=== PATIENT | female | born 2000 | race Caucasian/White ===

== ENCOUNTER 2023-01-07 13:29 | Emergency (ER) | payer OTHER, MEDICAID, SELFPAY ==
[2023-01-07 13:31] VITALS: BP 141/96; PULSE 82; RESP 18; TEMP 36.6; O2SAT 100; BMI 30.8
--- NOTE | 2023-01-07 13:49 | ED.VIS.FEGU ---
HPI HPI - Female History of Present Illness Chief Complaint: Vag Bld, Preg Informant: patient Pain Pain: Positive for Pelvic Pain Onset: Today Quality: Positive for Cramping Current Severity: Mild Maximum Severity: Mild Bleeding Issue: Positive for Vaginal bleeding Onset: Yesterday Timing: Intermittent Current Severity: Mild Maximum Severity: Mild Associated Symptoms Last known menstrual period: 10/18/2022 Test: Positive, Urine and Home Sexually: Positive for Active and Single Partner P: 1 Narrative Narrative: Patient is approximately 11 weeks by dates and positive home test. Has been calling trying to get into an OB locally but not able to get an appointment with anyone. She has been taking [id number] prenatals. Yesterday she started having bleeding this morning she started having some cramping and felt like it was in the left side mostly, occasionally on the right, but not severe pain. A little lightheadedness lately she has been drinking fluids and that seems to have helped. No syncope. No vomiting but she has had some nausea off and on. No urinary symptoms. No back pain. PFSH PFSH Medical History no medical history no medical history Allergy/AdvReac Type Severity Reaction Status Date / Time No Known Allergies Allergy Verified 01/07/23 13:33 Social History Smoking Status: Former smoker ROS ROS ED Constitutional Constitutional ED: Denies chills or fever(s) Eyes Eyes: Denies change in vision or diplopia ENT ENT ED: Denies rhinorrhea or sore throat Cardiovascular Cardiovascular: Reports lightheadedness; Denies chest pain, palpitations or syncope Respiratory/Chest Respiratory/Chest: Denies cough or dyspnea Gastrointestinal Gastrointestinal: Reports abdominal pain and nausea; Denies diarrhea or vomiting Genitourinary Genitourinary ED: Reports vaginal bleeding; Denies dysuria or hematuria Musculoskeletal Musculoskeletal: Denies back pain or neck pain Integumentary Denies abscess or rash Neurologic Neurologic: Denies headache(s), paresthesias or weakness Psychiatric Psychiatric: Denies anxiety or suicidal thoughts EXAM Physical Exam Const Vital Signs: 01/07/23 13:31 Temperature 97.8 F Temperature Source Temporal Pulse Rate 82 Respiratory Rate 18 Blood Pressure 141/96 H Blood Pressure Mean 111 Pulse Ox 100 Oxygen Delivery Method Room Air Positive well nourished and well developed General Appearance ED: well developed and NAD HEENT Reports moist mucous membranes normocephalic and atraumatic Eyes PERRL and EOMs intact bilaterally Neck full ROM and supple Resp normal respiratory effort and clear to auscultation bilaterally Cardio regular rate, regular rhythm and no murmurs Rate: Negative for tachycardic GI non-tender and non-distended Auscultation: normoactive bowel sounds Palpation: soft Speculum Exam - Vagina: vaginal bleeding Back/Spine no CVA tenderness General Back: other FROM Extremity normal to inspection General Extremety ED: Negative for edema, pulses abnormal or tenderness General Extremity: Negative for edema or pulses abnormal Neuro oriented x3, CN's II-XII intact bilaterally and no sensory deficits noted Sensorium / Orientation: awake and alert Motor Exam: strength 5/5 throughout Skin no rashes or lesions noted and no wounds MDM MDM MDM Narrative Medical decision making narrative: Labs were sent and a bedside ultrasound was performed by myself. I do not see clear evidence of an intrauterine or heartbeat. For this reason quantitative hCG is ordered and she is sent to ultrasound for an official transvaginal pelvic ultrasound in order to rule out or evaluate for ectopic . Also ordered ABO Rh since we have no record of her blood type in the past, to screen for need for RhoGAM. This showed that her blood type is A positive, so no indication for RhoGAM. Her quantitative hCG is 11,785. Ultrasound does not appear to show a pole or heartbeat. Gestational sac is only consistent with 6-week 2-day approximately. Reviewing the images, there appears to be a yolk sac in some of the uterine images, but yolk sac and pole not seen, consistent with nonviable . Discussed with Dr. Huang on for unassigned, she agrees to have the patient follow-up soon as possible after the weekend for reevaluation in the office, no 48-hour repeat hCG necessary at this time. Lab Data Attestation: I reviewed the patient's lab results. Labs: Laboratory Results - last 24 hr 01/07/23 13:42 HCG, Quant [id number] H Blood Type A POSITIVE Radiography Diagnostic Testing: Clinical Impression(s) from Imaging Studies Obstetrics Ultrasound 01/07/23 14:03 IMPRESSION: 1. The mean sac diameter (MSD) measures 1.50 cm, indicating an estimated gestational age (EGA) of 6 weeks, 2 days. The gestational sac shape is abnormally shaped and somewhat elongated and lobular, and containing small amounts of debris within the gestational sac. Appearance suggests nonviable Electronically Signed: Antolin Crews MD at 15:41 EST , I reviewed ultrasound images and the report and I agree with it. Discharge Plan Triage Chief Complaint: Vag Bld, Preg ED Provider: Klaus Cole Dx/Rx/DC Orders Clinical Impression: Threatened miscarriage Instructions: ED Possible Miscarriage ... Primary Care Provider: Care Physician,No Primary Referrals: Hansa Huang MD [Med Staff - Active Staff] - As soon as possible (call for appt to follow up on Tuesday or Tuesday) Disposition Disposition: Home, Self Care
--- NOTE | 2023-01-07 14:03 | US_ITS ---
STUDY: FIRST TRIMESTER OBSTETRICAL ULTRASOUND REASON FOR EXAM: Female, 22 years old pain L pelvis bleeding LMP: Unknown. TECHNIQUE: Transabdominal and Transvaginal TECHNICAL QUALITY: Adequate. PRIOR ULTRASOUND: None. FINDINGS: There is visualization of a single gestational sac in a normal intrauterine position. The mean sac diameter (MSD) measures 1.50 cm, indicating an estimated gestational age (EGA) of 6 weeks, 2 days. The gestational sac shape is abnormally shaped and somewhat elongated and lobular, and containing small amounts of debris within the gestational sac. There is no demonstrated yolk sac. The placenta is non-visualized. There is no demonstrated embryo ( pole). The uterus measures 9.2 x 7.5 x 5.7 cm. There is no demonstrated uterine fibroid. The cervix is closed. The right ovary measures 3.3 x 2.7 x 2.4 cm. There is no right ovarian cyst. There is no visualized right adnexal mass or complex lesion. The left ovary measures 3.1 x 1.8 x 2.1 cm. There is no left ovarian cyst. There is no visualized left adnexal mass or complex lesion. There is no fluid in the cul de sac. US/Transvaginal w/Preg US IMPRESSION: 1. The mean sac diameter (MSD) measures 1.50 cm, indicating an estimated gestational age (EGA) of 6 weeks, 2 days. The gestational sac shape is abnormally shaped and somewhat elongated and lobular, and containing small amounts of debris within the gestational sac. Appearance suggests nonviable Electronically Signed: Antolin Crews MD at 15:41 EST ,
[2023-01-07 14:52] LABS: hCG Titer Quant., Serum 11785 mIU/mL (1-3)
== END 2023-01-07 16:07 | disposition home or self-care (01) ==
PROVIDERS: Emergency Provider Emergency Medicine; Visit Provider Emergency Medicine
DX: O20.0 Threatened abortion (principal); Z3A.11 11 weeks gestation of pregnancy; Z87.891 Personal history of nicotine dependence
CPT/HCPCS: 76817; 84702; 86900; 86901; 99283; A4216

== ENCOUNTER → 2023-01-10 | Outpatient (CLI) | payer OTHER, MEDICAID, SELFPAY ==
[2023-01-10 11:44] LABS: hCG Titer Quant., Serum 4583 mIU/mL (1-3)
== END | disposition home or self-care (01) ==
LOC: LAB 10:27
PROVIDERS: Visit Provider Obstetrics & Gynecology
DX: O03.9 Complete or unspecified spontaneous abortion without complication (principal)
CPT/HCPCS: 36415; 84702

== ENCOUNTER → 2023-01-18 | Outpatient (CLI) | payer OTHER, MEDICAID, SELFPAY ==
[2023-01-18 18:13] LABS: hCG Titer Quant., Serum 103 mIU/mL (1-3)
== END | disposition home or self-care (01) ==
LOC: LAB 16:16
PROVIDERS: Referring Provider Obstetrics & Gynecology; Visit Provider Obstetrics & Gynecology
DX: O03.9 Complete or unspecified spontaneous abortion without complication (principal)
CPT/HCPCS: 36415; 84702

== ENCOUNTER → 2023-01-25 | Outpatient (CLI) | payer OTHER, MEDICAID, SELFPAY ==
[2023-01-25 18:42] LABS: hCG Titer Quant., Serum 14 mIU/mL (1-3)
== END | disposition home or self-care (01) ==
LOC: LAB 16:59
PROVIDERS: Referring Provider Obstetrics & Gynecology; Visit Provider Obstetrics & Gynecology
DX: O03.9 Complete or unspecified spontaneous abortion without complication (principal)
CPT/HCPCS: 36415; 84702

== ENCOUNTER → 2023-01-31 | Outpatient (CLI) | payer OTHER, MEDICAID, SELFPAY ==
[2023-01-31 15:09] LABS: hCG Titer Quant., Serum 4 mIU/mL (1-3)
== END | disposition home or self-care (01) ==
PROVIDERS: Referring Provider Obstetrics & Gynecology; Visit Provider Obstetrics & Gynecology
DX: O03.9 Complete or unspecified spontaneous abortion without complication (principal)
CPT/HCPCS: 36415; 84702

== ENCOUNTER → 2023-04-14 | Outpatient (CLI) | payer OTHER, MEDICAID, SELFPAY ==
[2023-04-14 12:39] LABS: hCG Titer Quant., Serum 74402 mIU/mL (1-3)
--- OUTSIDE RECORDS SUMMARY | 2023-04-14 18:23 | XMS RPT_ITS | CCD ---
Author Name Unknown Address [address] [place] [address] Organization [facility] Care Team Providers Care Partnership Marketing Manager Name Role Phone Kalyani Amaya Unavailable Unavailable Unavailable NO PRIMARY CARE, Primary Care Unavailable Medications Completed/Discontinued Medications Medication Drug Class(es) Dates Sig (Normalized) Sig (Original) amoxicillin 875 mg / clavulanate 125 mg oral tablet (2 sources) Penicillin-class Antibacterial Start: 09-29-2018 take 1 tablet by mouth twice daily Amoxicillin-Pot Clavulanate 875-125 MG Oral Tablet 1 tab bid Quantity: 20 Refills: 0 Ordered: 29-Sep-2018 Kalyani Amaya MD Start : 29-Sep-2018 Active ondansetron 4 mg oral tablet (4 sources) Serotonin-3 Receptor Antagonist Start: 04-17-2021 Ondansetron HCl - 4 MG Oral Tablet 1 tab q 8 prn nausea Quantity: 12 Refills: 0 Ordered: 17-Apr-2021 Kalyani Amaya MD Start : 17-Apr-2021 Active Problems Active Problems Problem Classification Problem Date Documented Date Episodic/Chronic Acute and chronic tonsillitis (2 sources) Tonsillitis; Translations: [Acute tonsillitis] Episodic Disorders of lipid metabolism (2 sources) Hypertriglyceridemia ; Translations: [Pure hyperglyceridemia] Chronic Gastritis and duodenitis (2 sources) Viral gastritis; Translations: [Unspecified gastritis and gastroduodenitis, without mention of hemorrhage] Episodic Menstrual disorders (2 sources) Disorder of menstruation; Translations: [Excessive or frequent menstruation] Chronic Nausea and vomiting (2 sources) Nausea and vomiting; Translations: [Nausea with vomiting] Episodic Other nutritional; endocrine; and metabolic disorders (2 sources) Childhood obesity; Translations: [Body Mass Index, pediatric, greater than or equal to 95th percentile for age] Chronic Other nutritional; endocrine; and metabolic disorders (2 sources) Insulin resistance; Translations: [Dysmetabolic syndrome X] Chronic Other and delivery including normal (2 sources) ; Translations: [ state, incidental] Episodic Other screening for suspected conditions (not mental disorders or infectious disease) (2 sources) Thyroid function tests abnormal; Translations: [Other abnormal blood chemistry] Episodic Other upper respiratory infections (4 sources) Streptococcal sore throat; Translations: [Streptococcal sore throat] Resolved: 05-25-2015 Episodic Past or Other Problems Problem Classification Problem Date Documented Da te Episodic/Chronic Other and unspecified benign neoplasm (2 sources) Benign neoplasm of soft tissue; Translations: [Benign neoplasm of skin, site unspecified] Resolved: 09-23-2016 Episodic Residual codes; unclassified (2 sources) H/O: respiratory disease; Translations: [Personal history of other diseases of respiratory system] Resolved: 07-11-2015 Episodic Unclassified (2 sources) Allergic rhinitis, unspecified allergic rhinitis type; Translations: [Allergic rhinitis, unspecified allergic rhinitis type] Results Test Name Value Interpretation Reference Range Facil ity Vital Signs Date Time Vital Sign Value Performing Clinician Faci lity 04-17-2021 13:59-0500 Body temperature 97.9 [degF] Kalyani Amaya Work Phone: [facility] Work Phone: 04-17-2021 13:59-0500 Body weight 88 kg Kalyani Amaya Work Phone: [facility] Work Phone: 04-17-2021 13:59-0500 Diastolic blood pressure 82 mm[Hg] Kalyani Amaya Work Phone: [facility] Work Phone: 04-17-2021 13:59-0500 Systolic blood pressure 122 mm[Hg] Kalyani Amaya Work Phone: [facility] Work Phone: Encounters Encounter Date Encounter Type Care Provider Facility Start: 08-10-2022 End: 08-10-2022 ambulatory MD [facility] Start: 04-18-2021 Chart Update Kalyani maya Work Phone: [facility] Work Phone: Start: 04-17-2021 Office outpatient vi sit 15 minutes MirlandeAnanya Amaya Work Phone: [facility] Work Phone: Immunizations Immunization Date Immunization Notes Care Provider Fa cility 11-27-2017 measles, mumps and rubella virus vaccine MirlandeAnanya Amaya Work Phone: [facility] Work Phone: 11-17-2017 influenza, injectabl e, quadrivalent, contains preservative MirlandeAnanya Amaya Work Phone: [facility] Work Phone: 09-15-2017 tetanus toxoid, redu edgar diphtheria toxoid, and acellular pertussis vaccine, adsorbed Kalyani Amaya Work Phone: [facility] Work Phone: 11-26-2016 Human Papillomavirus 9-valent vaccine; Translations: [Gardasil 9 Intramuscular Suspension] Kalyani Amaya Work Phone: [facility] Work Phone: Payers Date Payer Category Payer Unknown [id number] Unknown Unknown [id number] Social History Date Type Detail Facility Pets/Animals: Cat Pets/Animals: Cat [facility] Work Phone: History of Present illness Narrative 04-03-2021 Note Date & Type Note Facility 04-03-2021 History of Present illness Narrative EP. Here for constant vomiting after eating or drinking for 2 weeks.Niles is a 20 year old female presenting for vomiting after eating or drinking.- She reports that for the last 2 weeks she has been vomiting after eating or drinking anything.- no fever or chills or body aches- no problems swallowing.- She states that there is no chance of as she has not had intercourse in 2 years.- She denies depression and anxiety- no h/o eating disorder- has not been having many BM.- tries to drink water as much as she can.- has a 3 year old son and lives with mother- periods are normal. [facility] Work Phone: Summary Purpose Family History No Family History Records FoundUnknown Family Member Name Dates Details FHx: allergies: Mother(V19.6 , Z84.89) Status:Active Family history of diabetes m ellitus: Mother(V18.0, Z83.3) Status:Active Family history of thyroid di sease: Aunt(V18.19, Z83.49) Status:Active Family history of asthma: Mo ther, Sibling(V17.5, Z82.5) Status:Active Hay fever: Mother Status:Active Family history of arthritis: Mother, Grandparent(V17.7, Z82.61) Status:Active Family history of cardiac di sorder: Grandparent(V17.49, Z82.49) Status:Active Family history of myocardial infarction: Grandparent(V17.3, Z82.49) Status:Active Family history of hypertensi on: Grandparent(V17.49, Z82.49) Status:Active Borderline high cholesterol: Grandparent Status:Active Family history of substance abuse: Sibling(V17.0, Z81.4) Status:Active Unknown Family Member Name Dates Details FHx: allergies: Mother(V19.6 , Z84.89) Status:Active Family history of diabetes m ellitus: Mother(V18.0, Z83.3) Status:Active Family history of thyroid di sease: Aunt(V18.19, Z83.49) Status:Active Family history of asthma: Mo ther, Sibling(V17.5, Z82.5) Status:Active Hay fever: Mother Status:Active Family history of arthritis: Mother, Grandparent(V17.7, Z82.61) Status:Active Family history of cardiac di sorder: Grandparent(V17.49, Z82.49) Status:Active Family history of myocardial infarction: Grandparent(V17.3, Z82.49) Status:Active Family history of hypertensi on: Grandparent(V17.49, Z82.49) Status:Active Borderline high cholesterol: Grandparent Status:Active Family history of substance abuse: Sibling(V17.0, Z81.4) Status:Active Advance Directives No Advanced Directives Records FoundNo Advanced Directives Records FoundNo Advanced Directives Records FoundNo Advanced Directives Records FoundNo Advanced Directives Records FoundNo Advanced Directives Records FoundNo Advanced Directives Records Found Hospital Course Note HNO ID: [id number] Author: Jorge De La Paz Service: Hospital Medicine Author Type: Physician Type: Discharge Summary Filed: 12/19/2018 4:50 PM Note Text: DISCHARGE SUMMARY PATIENT NAME: Niles Neri ADMISSION DATE: 12/17/2018 DISCHARGE DATE: 12/19/2018 Attending Physician: Josue De La Paz Reason for Hospitalization: syncope Active Problems: Syncope Intractable headache Resolved Problems: * No resolved hospital problems. * Operations During Hospitalization: None Procedures During Hospitalization: EEG, MRI brain, MRV, MRA head and neck Hospital Course: Patient is a 18-year-old female with no significant past medical history product to the ER after she had an episode of syncope. She had 2 episodes of syncope at home. Both of them were preceded by severe throbbing headache bilaterally. She was seen recently at [facility] for fever and underwent lumbar puncture with no evidence of any COIL BUILDER infection. Patient is seen by neurology. She had workup with EEG, MRI of the (more content not included)... Note HNO ID: [id number] Author: Bigg Singh Service: Hospital Medicine Author Type: Physician Type: Discharge Summary Filed: 12/15/2018 8:07 AM Note Text: DISCHARGE SUMMARY PATIENT NAME: Niles Neri Code Status: full code Highest Readmission Risk Score: 8 The 30 day readmissions risk score is derived from an internally validated risk model which evaluates patient level characteristics, utilization history, medication orders and lab results up until the day of discharge. Patients with a score of 40 or above are considered highest risk for readmission. Specific patient level drivers will be listed at the bottom of the summary. Admission Information Admission Information ADMIT DATE: 12/14/2018 DISCHARGE DATE: 12/15/18 MY DOCTORS AND MEDICAL TEAM: My Main Hospital Doctor: Obed Singh Primary Care Provider: Mery Jimenez MD My Medical Team Members: Treatment Team: Attending Provider: Obed Singh Consulting: Linus Billings MD MY CONDITION AT DISCHARGE: S (more content not included)... Additional Source Comments INFORMATION SOURCE (unrecogn ized section and content) DATE CREATED AUTHOR AUTHOR'S ORGANIZ ATION 12/19/2018 [facility] DATE CREATED AUTHOR AUTHOR'S ORGANIZ ATION 12/22/2018 [facility] DATE CREATED AUTHOR AUTHOR'S ORGANIZ ATION 10/06/2019 [facility] DATE CREATED AUTHOR AUTHOR'S ORGANIZ ATION 04/19/2021 [facility] DATE CREATED AUTHOR AUTHOR'S ORGANIZ ATION 04/20/[address] [facility] DATE CREATED AUTHOR AUTHOR'S ORGANIZ ATION 08/11/2022 [facility] FOR RECORDS PERTAINING TO PATIENTS WHO ARE OR HAVE BEEN ENROLLED IN A CHEMICAL DEPENDENCY/SUBSTANCEABUSE PROGRAM, SOME INFORMATION MAY BE OMITTED. This clinical summary was aggregated from multiple sources. Caution should be exercised in using it in the provision of clinical care. This summary normalizes information from multiple sources, and as a consequence, information in this document may materially change the coding, format and clinical context of patient data. In addition, data may be omitted in some cases. CLINICAL DECISIONS SHOULD BE BASED ON THE PRIMARY CLINICAL RECORDS. [facility] [employer] provides no warranty or guarantee of the accuracy or completeness of information in this document.
== END | disposition home or self-care (01) ==
LOC: LAB 11:20
PROVIDERS: Referring Provider Obstetrics & Gynecology; Visit Provider Obstetrics & Gynecology
DX: N91.2 Amenorrhea, unspecified (principal)
CPT/HCPCS: 36415; 84702

== ENCOUNTER → 2023-04-20 | Outpatient (CLI) | payer OTHER, MEDICAID, SELFPAY ==
--- NOTE | 2023-04-20 13:51 | US_ITS ---
INDICATION: dating EXAMINATION: Ultrasound US OB Less Than 14 Weeks TECHNIQUE: Transabdominal pelvic ultrasound was performed. Grayscale, spectral waveform, and color flow Doppler evaluation of the adnexa. COMPARISON: Prior study dated: 01/07/2023 LMP: [Unknown Beta-hCG: Unknown FINDINGS: UTERUS: The uterus measures about 14 x 9.3 x 9 cm. RIGHT OVARY: The right ovary measures 3.3 x 2.6 x 2 cm. Normal. LEFT OVARY: The left ovary measures 3.7 x 3 x 2.7 cm. Normal. FREE FLUID: None. INTRAUTERINE GESTATIONAL SAC(s) (size/shape): Single intrauterine gestational sac . YOLK SAC: Not identified POLE: Identified CRL 5.3 cm. ESTIMATED GESTATION AGE: 11 weeks and 6 days. HEART MOTION: 162 bpm. PLACENTA: Not visualized due to age. SUBCHORIONIC HEMORRHAGE: None. AMNIOTIC FLUID: Qualitatively normal. US/Init OB < 14Wks US IMPRESSION: Single live intrauterine . Estimated gestational age is 11 weeks and 6 days. LASHA is 11/03/2023. Electronically Signed: Lewis Franco MD at 10:36 EST ,
== END | disposition home or self-care (01) ==
LOC: OPUS 13:50
PROVIDERS: Referring Provider Obstetrics & Gynecology; Visit Provider Obstetrics & Gynecology
DX: Z34.91 Encounter for supervision of normal pregnancy, unspecified, first trimester (principal); Z3A.11 11 weeks gestation of pregnancy
CPT/HCPCS: 76801

== ENCOUNTER → 2023-04-28 | Outpatient (CLI) | payer OTHER, MEDICAID, SELFPAY ==
[2023-04-28 16:18] LABS: Absolute Lymphocyte Count 2.01 X10^3/uL (0.83-4.51); Absolute Neutrophil Count 5.5 X10^3/uL (2.0-7.7); Basophil# 0.02 X10^3/uL; Basophil% 0.2 % (0-1); Eosinophils% 1.2 % (0-5); Lymphocyte # 2.01 X10^3/ul (0.83-4.51); Lymphocyte % 24.8 % (19-41); Mean Corp Hgb Conc 34.3 g/dL (32-36); Mean Corpuscular Hgb 30.4 pg (27.0-32.0); Mean Corpuscular Volume 88.6 fL (81-99); Mean Platelet Vol. 9.9 fl (6.2-12.0); Monocyte% 4.9 % (0-10); NRBC Flagged by Analyzer 0 % (0-5); Neutrophil # 5.53 X10^3/uL (2.7-7.7); Neutrophil % 68.4 % (47-70); Platelet Count 284 K/mm3 (150-450); RBC Distribution Width CV 12.6 % (11.6-14.6); Red Blood Count 3.95 M/mm3 (4.2-5.4); White Blood Count 8.1 K/mm3 (4.4-11.0)
[2023-04-28 17:03] LABS: Hemoglobin A1c 4.9 % (3.8-5.6)
[2023-04-28 17:41] LABS: HIV - WCH Non-Reactive (Nonreactive); Hepatitis B Surface Antigen Non-Reactive (Nonreactive); Hepatitis C Antibody Non-Reactive (Nonreactive); Rubella IgG Reactive (Nonreactive); Syphilis Antibodies Non-reactive
[2023-05-02 21:07] LABS: Chlamydia By Nucleic Acid AMP Positive (Negative); Gonococcus By Nucleic Acid AMP Negative (Negative)
[2023-05-04 15:57] LABS: HPV Reflexed? NOT INDICATED
== END | disposition home or self-care (01) ==
PROVIDERS: Referring Provider Advanced Practice Midwife; Visit Provider Advanced Practice Midwife
DX: Z34.82 Encounter for supervision of other normal pregnancy, second trimester (principal)
CPT/HCPCS: 36415; 83036; 85025; 86703; 86762; 86780; 86803; 86850; 86900; 86901; 87086; 87088; 87340; 87491; 87591; 88175; G0145

== ENCOUNTER → 2023-06-01 | Outpatient (CLI) | payer SELFPAY | END | disposition home or self-care (01) | LOC: LABSPEC 16:49 | PROVIDERS: Referring Provider Obstetrics & Gynecology; Visit Provider Obstetrics & Gynecology | DX: O98.819 Other maternal infectious and parasitic diseases complicating pregnancy, unspecified trimester (principal); A74.9 Chlamydial infection, unspecified; Z3A.00 Weeks of gestation of pregnancy not specified | CPT/HCPCS: 87491; 87591 ==

== ENCOUNTER 2023-06-25 10:24 | Emergency (ER) | payer OTHER, MEDICAID, SELFPAY ==
[2023-06-25 10:25] VITALS: BP 137/83; PULSE 91; RESP 18; TEMP 36.4; O2SAT 100; BMI 31.4
--- NOTE | 2023-06-25 10:45 | ED.VIS.FEGU ---
HPI HPI - Female History of Present Illness Chief Complaint: Vag Bld, Preg Narrative Narrative: 22-year-old female, G3, P1 at approximately 21 weeks gestation presents with near syncope. She relates history that on Tuesday, approximately 7 days ago, she started having pelvic cramping. The following day, she experienced spotting/vaginal bleeding. This alternates between a slightly heavier flow returns to spotting. Currently, she denies any brisk vaginal bleeding but is still having occasional cramping. She states she follows with Dr. Broderick at [facility], but did not contact them as of yet. She was concerned because today she felt very lightheaded and near syncopal, but states she caught herself before she actually passed out. She denies any fevers or chills, no other symptoms. PFSH [facility] Medical History Complete Hx of chlamydia infection Home Medications PNV 153-FA 400 mcg-om3 35 mg-dha 25 mg-epa 5 mg-fish oil chew tablet tab PO 04/28/23 [History Last Taken Unknown] Allergy/AdvReac Type Severity Reaction Status Date / Time No Known Allergies Allergy Verified 06/25/23 10:25 Family History Aunt Breast cancer Paternal Aunt Breast cancer Maternal Mother Asthma demise 20weeks Sister Asthma Brother Asthma Social History adopted: No household members: family and children number of children: 1 current occupational status: employed current occupation: [employer] current occupational exposures/hazards: No pets and animals: Yes pets and animals: cat(s) and dog(s) history of recent travel: No sexually active: Yes Smoking Status: Former smoker Tobacco: How many years used: 7 how long ago did patient quit smoking: once she found out she was alcohol intake: never substance use type: does not use well-balanced diet: about half the time caffeine: Yes Type: coffee Number of servings: 2 eating out: 1-3 times/week during the past year weight has: increased > 10 lbs what type of physical activity do you participate in: none jenna/uatsdin: None seatbelt use: always do you feel safe at home: Yes additional social history: Boyfriend-Patel BERNSTEIN ROS ED ROS Narrative Constitutional: No fever, no chills. HEENT: No sore throat. No neck pain. No loss of vision. No rhinorrhea. Cardiovascular: No chest pain. No palpitations. No pedal edema. Respiratory: No cough, no shortness of breath. Abdominal: No abdominal pain. No nausea. No vomiting. Genitourinary: No dysuria. No hematuria. Positive vaginal bleeding/spotting. Positive pelvic cramping. Started 7 days ago. Musculoskeletal: No myalgias. No arthralgias. Neurologic: No headaches. No dizziness. Positive lightheadedness and near syncope today. Skin: No rash. No change in color. Psychiatric: No depression. No anxiety. EXAM Physical Exam Narrative Exam Narrative: Afebrile. Vital signs noted. HEENT: Normocephalic. Atraumatic. PERRL, EOMI. Neck soft and supple. No point tenderness or step off. Cardiovascular: Regular rate and rhythm. No murmurs, rubs, or gallops appreciated. Respiratory: No tachypnea. Lungs clear to auscultation bilaterally. Gastrointestinal: Abdomen soft, nontender, with normoactive bowel sounds. No rebound or guarding. Neurological: Awake. Alert. Oriented. Nonfocal, nonlateralizing. Skin: No rash. Normal color. No pallor. Musculoskeletal: No pedal edema. Full range of motion extremities. Const Vital Signs: 06/25/23 10:25 Temperature 97.6 F L Temperature Source Temporal Pulse Rate 91 Respiratory Rate 18 Blood Pressure 137/83 H Blood Pressure Mean 101 Pulse Ox 100 Oxygen Delivery Method Room Air MDM MDM MDM Narrative Medical decision making narrative: In the differential diagnosis would be anemia from vaginal bleeding causing near syncope. Also the differential would be vasovagal near syncope secondary to anxiety. Patient states that she does not have a menstrual period between her last which was miscarried, and her that is current. heart tones will be obtained. As she is 21 weeks I will defer sterile speculum examination. I will check basic laboratory work including CBC and CMP, but I do feel that after this medical clearance that she would be able to be discharged to labor and delivery for further evaluation as she is over 20 weeks gestation. heart rate was obtained by RN and his time to the 154 bpm. I reviewed her CBC which has returned and she is slightly anemic at 10.9, I do not feel she needs a transfusion, platelet count is normal at 228, WBC count 8.3. Her CMP is pending, but I do feel that she has been medically cleared for further evaluation in labor and delivery where ultrasound transabdominally can be performed as needed, as well as sterile speculum examination. Disposition is discharged to labor and delivery. Patient is in stable condition. History & Record Review Discussion w/independent historian: Patient Lab Data Labs: Laboratory Results - last 24 hr 06/25/23 10:50 WBC 8.3 RBC 3.64 L Hgb 10.9 L Hct 32.7 L MCV 89.8 MCH 29.9 MCHC 33.3 RDW Std Deviation 42.3 RDW Coeff of Bartolo 12.9 Plt Count 228 MPV 10.0 Immature Gran % (Auto) 0.500 Neut % (Auto) 75.8 H Lymph % (Auto) 17.8 L Russell % (Auto) 4.6 Eos % (Auto) 1.1 Baso % (Auto) 0.2 Absolute Neuts (auto) 6.3 Absolute Lymphs (auto) 1.47 Nucleated RBC % 0 Discharge Plan Triage Chief Complaint: Vag Bld, Preg ED Provider: Gallo Baldwin Dx/Rx/DC Orders Clinical Impression: Vaginal bleeding during , Near syncope, Instructions: Vaginal Bleeding During , ED Near-Fainting, Uncertain Cause Prescriptions: No Action PNV [id number] 400 mcg-35 mg- 25 mg-5 mg tablet,chewable PO Primary Care Provider: Care Physician,No Primary Referrals: Care Physician,No Primary [Primary Care Provider] - Activity Restrictions/Additional Instructions: Report immediately to labor and delivery for further evaluation. Disposition Disposition: Home, Self Care
[2023-06-25 11:11] LABS: Absolute Lymphocyte Count 1.47 X10^3/uL (0.83-4.51); Absolute Neutrophil Count 6.3 X10^3/uL (2.0-7.7); Basophil# 0.02 X10^3/uL; Basophil% 0.2 % (0-1); Eosinophil# 0.09 X10^3/uL; Eosinophils% 1.1 % (0-5); Hematocrit 32.7 % (37-47); Hemoglobin 10.9 g/dL (12.0-15.0); Lymphocyte # 1.47 X10^3/ul (0.83-4.51); Lymphocyte % 17.8 % (19-41); Mean Corp Hgb Conc 33.3 g/dL (32-36); Mean Corpuscular Hgb 29.9 pg (27.0-32.0); Mean Corpuscular Volume 89.8 fL (81-99); Monocyte# 0.38 X10^3/uL; Monocyte% 4.6 % (0-10); NRBC Flagged by Analyzer 0 % (0-5); Neutrophil # 6.25 X10^3/uL (2.7-7.7); Neutrophil % 75.8 % (47-70); Platelet Count 228 K/mm3 (150-450); RBC Distribution Width CV 12.9 % (11.6-14.6); RBC Distribution Width SD 42.3 fl (35.1-43.9); Red Blood Count 3.64 M/mm3 (4.2-5.4); White Blood Count 8.3 K/mm3 (4.4-11.0)
[2023-06-25 11:20] LABS: ALB/GLOB Ratio 0.8 RATIO (0.9-2.4); AST(SGOT) 12 U/L (15-37); Alanine Aminotransfer ALT/SGPT 16 U/L (13-56); Alkaline Phosphatase 39 U/L (45-117); Anion Gap 5 (5-15); BUN 6 mg/dL (7-18); BUN/Creat Ratio 10.7 RATIO (10-20); Chloride 108 mmol/L (98-107); Creatinine, Serum 0.56 mg/dL (0.55-1.02); EST Glomerular Filtration Rate 140 mL/min (>60); Est Glom Filt Rate - Afr Amer 170 mL/min (>60); Globulin 3.8 g/dL (2.2-4.2); Glucose 91 mg/dL (74-106); Potassium 3.3 mmol/L (3.5-5.1); Protein, Total 6.8 g/dL (6.4-8.2); Sodium Level 138 mmol/L (136-145)
== END 2023-06-25 11:21 | disposition home or self-care (01) ==
PROVIDERS: Emergency Provider Emergency Medicine; Visit Provider Emergency Medicine
DX: O46.92 Antepartum hemorrhage, unspecified, second trimester (principal); Z3A.21 21 weeks gestation of pregnancy; R55 Syncope and collapse; Z87.891 Personal history of nicotine dependence; O99.012 Anemia complicating pregnancy, second trimester; O99.891 Other specified diseases and conditions complicating pregnancy; D64.9 Anemia, unspecified
CPT/HCPCS: 80053; 85025; 99283; A4216

== ENCOUNTER 2023-06-25 11:20 | Outpatient (CLI) | payer OTHER, MEDICAID, SELFPAY ==
--- NOTE | 2023-06-25 11:26 | US_ITS ---
STUDY: SECOND AND THIRD TRIMESTER OBSTETRICAL ULTRASOUND - LIMITED REASON FOR EXAM: Female, 22 years old bleeding and decrease movement LMP: Unknown. PRIOR ULTRASOUND: 04/20/2023 TECHNIQUE: Transabdominal TECHNICAL QUALITY: Adequate. FINDINGS: There is a single intrauterine fetus. The fetus is in a breech presentation. There is demonstrated cardiac activity with a heart rate of 141 bpm. There is a subjectively normal amniotic fluid volume. The largest amniotic fluid pocket measures 3.9 cm. . The placenta is anterior and fundal, not low lying There are Grade 1 placental changes. The cervix measures 4.0 cm in length. Cotton Classer notes multiple venous lakes within the placenta largest measures 2.6 x 2.9 x 1.7 cm. Detailed anatomy survey not performed, estimated gestational age is 21 weeks 2 days. US/OB Limited (No Biometrics) IMPRESSION: Single live intrauterine with heart rate at 21 weeks, 2 days with heart rate at at 141 bpm. Presentation on the study is breech. Cotton Classer notes multiple venous lakes within the placenta. Electronically Signed: Jozef Tipton MD at 13:36 EDT ,
[2023-06-25 11:54] VITALS: PULSE 77; RESP 16; TEMP 37.2; O2SAT 99
[2023-06-25 11:55] VITALS: BP 93/51; PULSE 76
[2023-06-25 11:56] VITALS: BMI 32.1
[2023-06-25 11:57] LABS: Mucous, Urine 0 SEEN /hpf (<or=2+); Squamous Epithelial Cells - UA 0 SEEN /hpf (5-10)
[2023-06-25 12:06] LABS: Color, Urine Straw (Yellow); Glucose, Dipstick Normal (Normal); Ketone-Dipstick Negative (Negative); Leukocyte Esterase-Dipstick 500 /ul (Negative); Nitrite-Dipstick Negative (Negative); Occult Blood-Urine 10 /ul (Negative); Protein-Dipstick Negative (Negative); Specific Gravity, Urine 1.005 (1.002-1.030); Urine Bilirubin Dipstick Negative (Negative); Urine Clarity Clear (Clear); Urine Urobilinogen Normal (Normal)
[2023-06-25 12:13] LABS: Bacteria RARE /hpf (None Seen); Red Blood Cells-Urine 0-5 SEEN /hpf (0-5); Transitional Epithelial - Ur 5-10 SEEN /hpf (0-5); White Blood Cells 10-25 SEEN /hpf (0-5)
[2023-06-25] MEDS: 0.9% Saline Lock 10 ML Syringe IV ×2 (13:21→13:22)
[2023-06-25] MEDS: Lactated Ringers 1,000 ML 999 ML IV (13:21)
--- NOTE | 2023-06-25 13:56 | OB.TRI.PN_ITS ---
Progress Notes Date of Service: 06/25/23 Progress Note: Patient presents for triage evaluation secondary to cramping and occasional vaginal spotting FHT: 140 appropriate for gestational age [place]: no Contractions Assessment and plan: US reassuring, No rhogam indicated, Urine indicates possible UTI-home with ATB, reassuring maternal and status patient discharged to home to follow-up in office. See problem list details for additional plan information. Laboratory Studies: Laboratory Tests 06/25/23 Range/Units 11:41 Urine Color Straw (Yellow) Urine Clarity Clear (Clear) Urine pH 7.0 (5.0 - 8.0) Ur Specific [place] 1.005 (1.002-1.030) Urine Protein Negative (Negative) mg/dl Urine Glucose (UA) Normal (Normal) mg/dl Urine Ketones Negative (Negative) mg/dl Urine Occult Blood 10 H (Negative) /ul Urine Nitrite Negative (Negative) Urine Bilirubin Negative (Negative) mg/dL Urine Urobilinogen Normal (Normal) mg/dl Ur Leukocyte Esterase 500 H (Negative) /ul Urine RBC 0-5 SEEN (0-5) /hpf Urine WBC 10-25 SEEN (0-5) /hpf Ur Squamous Epith Cells 0 SEEN (5-10) /hpf Ur Transition Epith Cell 5-10 SEEN (0-5) /hpf Urine Bacteria RARE (None Seen) /hpf Urine Mucus 0 SEEN (<or=2+) /hpf Blood Type A POSITIVE Antibody Screen NEGATIVE Charges/Coding Procedures Urinary/Genital 52xxx-59xxx: [id number] non-stress test Interp Assessment & Plan (1) Urinary tract infection: PLAN: macrobid (2) Near syncope: (3) Vaginal bleeding during : (4) Chlamydia infection affecting : COMMENT: KYRA at 17 wks-missed at appt. NEEDS NEXT APPT (5) Obesity affecting : COMMENT: A1C NOB (6) Asthma: COMMENT: mild (7) Supervision of high-risk : COMMENT: PRR, , LASHA 11/03/23, JOHNATHON Noriega (8) : QUALIFIERS: Weeks of gestation: 17 weeks Qualified Code(s): Z3A.17 - 17 weeks gestation of COMMENT: NL anatomy, NIPT low risk, discussed genetic & carrier testing (9) History of miscarriage, currently :
[2023-06-25 14:14] VITALS: BP 109/67; PULSE 71
[2023-06-29 04:07] LABS: Chlamydia By Nucleic Acid AMP Negative (Negative); Gonococcus By Nucleic Acid AMP Negative (Negative)
== END 2023-06-25 14:30 | disposition home or self-care (01) ==
LOC: OBT 11:25 → WP 11:25
PROVIDERS: Visit Provider Advanced Practice Midwife
DX: O23.42 Unspecified infection of urinary tract in pregnancy, second trimester (principal); Z3A.17 17 weeks gestation of pregnancy; O20.9 Hemorrhage in early pregnancy, unspecified; O99.212 Obesity complicating pregnancy, second trimester; O99.512 Diseases of the respiratory system complicating pregnancy, second trimester; J45.909 Unspecified asthma, uncomplicated; O09.292 Supervision of pregnancy with other poor reproductive or obstetric history, second trimester
CPT/HCPCS: 96374; 96361; 36415; 76815; 81001; 86850; 86900; 86901; 87491; 87591; 99221; J7120; A4216; G0378

== ENCOUNTER → 2023-07-28 | Outpatient (CLI) | payer OTHER, MEDICAID, SELFPAY | END | disposition home or self-care (01) | LOC: LABSPEC 15:00 | PROVIDERS: Referring Provider Advanced Practice Midwife; Visit Provider Advanced Practice Midwife | DX: N30.01 Acute cystitis with hematuria (principal) | CPT/HCPCS: 87086; 87088 ==

== ENCOUNTER → 2023-08-10 | Outpatient (CLI) | payer OTHER, MEDICAID, SELFPAY ==
[2023-08-10 14:28] LABS: Absolute Lymphocyte Count 1.59 X10^3/uL (0.83-4.51); Absolute Neutrophil Count 6.2 X10^3/uL (2.0-7.7); Basophil# 0.01 X10^3/uL; Basophil% 0.1 % (0-1); Eosinophil# 0.11 X10^3/uL; Eosinophils% 1.3 % (0-5); Hematocrit 33.7 % (37-47); Hemoglobin 11.2 g/dL (12.0-15.0); Lymphocyte # 1.59 X10^3/ul (0.83-4.51); Lymphocyte % 18.9 % (19-41); Mean Corp Hgb Conc 33.2 g/dL (32-36); Mean Corpuscular Hgb 30.1 pg (27.0-32.0); Mean Corpuscular Volume 90.6 fL (81-99); Mean Platelet Vol. 10.1 fl (6.2-12.0); Monocyte# 0.48 X10^3/uL; Monocyte% 5.7 % (0-10); NRBC Flagged by Analyzer 0 % (0-5); Neutrophil # 6.18 X10^3/uL (2.7-7.7); Neutrophil % 73.5 % (47-70); Platelet Count 251 K/mm3 (150-450); RBC Distribution Width CV 13.2 % (11.6-14.6); RBC Distribution Width SD 43.5 fl (35.1-43.9); Red Blood Count 3.72 M/mm3 (4.2-5.4); White Blood Count 8.4 K/mm3 (4.4-11.0)
[2023-08-10 15:01] LABS: Glucose Challenge Gest 1H 50g 97 mg/dL (70-140)
[2023-08-10 15:36] LABS: HIV - WCH Non-Reactive (Nonreactive); Syphilis Antibodies Non-reactive
== END | disposition home or self-care (01) ==
LOC: LAB 13:06
PROVIDERS: Referring Provider Advanced Practice Midwife; Visit Provider Advanced Practice Midwife
DX: Z34.93 Encounter for supervision of normal pregnancy, unspecified, third trimester (principal); Z3A.26 26 weeks gestation of pregnancy; Z13.1 Encounter for screening for diabetes mellitus
CPT/HCPCS: 36415; 82950; 85025; 86703; 86780

== ENCOUNTER → 2023-10-06 | Outpatient (CLI) | payer OTHER, MEDICAID, SELFPAY | END | disposition home or self-care (01) | LOC: LABSPEC 16:52 | PROVIDERS: Referring Provider Obstetrics & Gynecology; Visit Provider Obstetrics & Gynecology | DX: O98.811 Other maternal infectious and parasitic diseases complicating pregnancy, first trimester (principal); A74.9 Chlamydial infection, unspecified; O09.93 Supervision of high risk pregnancy, unspecified, third trimester; Z3A.00 Weeks of gestation of pregnancy not specified | CPT/HCPCS: 87081; 87491; 87591 ==

== ENCOUNTER 2023-11-07 14:48 | Inpatient (IN) | payer OTHER, MEDICAID, SELFPAY ==
[2023-11-07] VITALS (67 sets, daily range): BP systolic 93–160; BP diastolic 53–83; PULSE 79–169; RESP 16–20; TEMP 36.7–37.2; O2SAT 93–100; BMI 36.3
[2023-11-07] MEDS: Lactated Ringers 1,000 ML 999 ML IV (15:00)
[2023-11-07 15:22] LABS: Absolute Lymphocyte Count 2.39 X10^3/uL (0.83-4.51); Absolute Neutrophil Count 9.4 X10^3/uL (2.0-7.7); Basophil# 0.02 X10^3/uL; Basophil% 0.2 % (0-1); Eosinophil# 0.07 X10^3/uL; Eosinophils% 0.5 % (0-5); Hematocrit 35.7 % (37-47); Hemoglobin 11.9 g/dL (12.0-15.0); Lymphocyte # 2.39 X10^3/ul (0.83-4.51); Lymphocyte % 18.7 % (19-41); Mean Corp Hgb Conc 33.3 g/dL (32-36); Mean Corpuscular Hgb 29.6 pg (27.0-32.0); Mean Corpuscular Volume 88.8 fL (81-99); Monocyte# 0.83 X10^3/uL; Monocyte% 6.5 % (0-10); NRBC Flagged by Analyzer 0 % (0-5); Neutrophil # 9.37 X10^3/uL (2.7-7.7); Neutrophil % 73.3 % (47-70); Platelet Count 246 K/mm3 (150-450); RBC Distribution Width CV 13.7 % (11.6-14.6); RBC Distribution Width SD 44.5 fl (35.1-43.9); Red Blood Count 4.02 M/mm3 (4.2-5.4); White Blood Count 12.8 K/mm3 (4.4-11.0)
--- NOTE | 2023-11-07 15:51 | HP.PCM.OB_ITS ---
HPI - General General Date of Admission: 11/07/23 Date of Service: 11/07/23 HPI Narrative NILES OJYCE, is a 22 F 40.4 weeks gestation who presents to unit in active labor. Maternal Data Information LASHA Calculator Estimated Delivery Date Method Current WG Current Estimate 11/03/23 Ultrasound #1 40w 4d Final LASHA: 11/03/23 Final LASHA Source: US >20 weeks Gestational age: 40.4 PFSH PFSH Medical History Hx of chlamydia infection Complete Home Medications ?Medication ?Instructions ?Recorded ?Last Taken ?Type PNV 153-FA 400 mcg-om3 35 mg-dha 1 tab PO DAILY 04/28/23 11/05/23 07:00 History 25 mg-epa 5 mg-fish oil chew tablet 1 TAB Allergy/AdvReac Type Severity Reaction Status Date / Time No Known Allergies Allergy Verified 11/07/23 15:03 Family History Aunt Breast cancer Paternal Aunt Breast cancer Maternal Mother Asthma demise 20weeks Sister Asthma Brother Asthma Social History adopted: No household members: family and children number of children: 1 current occupational status: employed current occupation: [employer] current occupational exposures/hazards: No pets and animals: Yes pets and animals: cat(s) and dog(s) history of recent travel: No sexually active: Yes Smoking Status: Former smoker Tobacco: How many years used: 7 how long ago did patient quit smoking: once she found out she was alcohol intake: never substance use type: does not use well-balanced diet: about half the time caffeine: Yes Type: coffee Number of servings: 2 eating out: 1-3 times/week during the past year weight has: increased > 10 lbs what type of physical activity do you participate in: none jenna/caodaism: None seatbelt use: always do you feel safe at home: Yes additional social history: Boyfriend-Patel History 3 Elective abortions Hx Para 1 Spontaneous abortions 1 Hx # Term Pregnancies Ectopic pregnancies Hx # Pregnancies Multiple births # of living children 1 Past Pregnancies Del. Date Name GA/Weeks Outcome Route Bth Weight Gen Labor Lgth Anesthesia Del Locatn Provider FOB 11/25/17 Ariel 40 live - full term 8#8oz Male 48 HRs epidural [facility] Ozzy Jones 01/08/23 11 spontaneous Delivery Date: 11/25/17 Last Updated by: Vale Vizcaino IUGR Delivery Date: 01/08/23 Last Updated by: Vale Bigg Vizcaino baby stopped developing at 7 wks Visit Details Expected Delivery Route/Plan Labor Preferences- CB/BF classes: enc labor support person: Patel labor intervention preferences: [] pain management options preferred: ok epidural cut cord/dad catch: cord : yes PP control planned: discussed discussed possible routes of delivery and associated risks: [] special requests: [] Plans Covid status: [] Flu vaccine: [] Tdap vaccine: given Rhogam: na LARC form signed: yes movement and labor precautions reviewed. Problem list reviewed and updated with the most current plan of care details and appropriate orders placed. Relevant counseling for the gestational age provided. Continue routine care and follow up unless otherwise noted in visit notes/problem list details OB Flowsheet Initial Weight: 200 lb Date -?-?-?-?-?-?-?-?-?-?-?-?- EGA Weight BP Urine Prot -?-?-?-?-?-?-?-?-?-?-?-?- Glucose FHR FuHt Pres Dilation -?-?-?-?-?-?-?-?-?-?-?-?- Effaced St Visit Note 04/28/23 -?-?-?-?-?-?-?-?-?-?-?-?- 13w 0d 200 lb 2 oz (+2 oz) 113/74 -?-?--?-?-?-?-?-?-?-?-?-?- 158 -?-?-?-?-?-?-?-?-?-?-?-?- KW- had early US for dating. Desires NIPT. Anatomy US ordered 06/01/23 -?-?-?-?-?-?-?-?-?-?-?-?- 17w 6d 200 lb 2 oz (+2 oz) 104/70 Negative -?-?-?-?-?-?-?-?-?-?-?-?- Negative 141 -?-?-?-?-?-?-?-?-?-?-?-?- JV- no lof, vagi nal bleeding, or cramping but is worried about not feeling movement. She needs a KYRA today for chlamydia. 06/29/23 -?-?-?-?-?-?-?-?-?-?-?-?- 21w 6d 206 lb 2 oz (+6 lb 2 oz) 118/70 Negative -?-?-?-?-?-?-?-?-?-?-?-?- Negative 143 -?-?-?-?-?-?-?-?-?-?-?-?- MH-Seen WP for b leeding 04/24. No further bleeding. Tx for UTI, culture still pending. GCC was negative. She is feeling movement. Nausea problematic/zofran sent. 07/28/23 -?-?-?-?-?-?-?-?-?-?-?-?- 26w 0d 207 lb 2 oz (+7 lb 2 oz) 110/71 Negative -?-?-?-?-?-?-?-?-?-?-?-?- Negative 145 26 -?-?-?-?-?-?-?-?-?-?-?-?- KW- no vb/lof/ct x. good fm. 08/12/23 -?-?-?-?-?-?-?-?-?-?-?-?- 28w 1d 213 lb 6 oz (+13 lb 6 oz) 113/72 Negative -?-?-?-?-?-?-?-?-?-?-?-?- Negative 138 28 -?-?-?-?-?-?-?-?-?-?-?-?- LC- no vb/ctx/lo f. good fm. passed glucose. hbg increasing on increased iron. no concerns. LC- no vb/ctx/lof. good fm. passed glucose. hbg increasing on increased iron. no concerns. tdap given today. 08/25/23 -?-?-?-?-?-?-?-?-?-?-?-?- 30w 0d 214 lb (+14 lb) 111/72 -?-?-?-?-?-?--?-?-?-?-?-?- 135 30 -?-?-?-?-?-?-?-?-?-?-?-?- JV- no lof, vagi nal bleeding, or dec fm. no complaints. JV- no lof, vaginal bleeding , or dec fm. no complaints other than insomnia. will try vistaril. 09/08/23 -?-?-?-?-?-?-?-?-?-?-?-?- 32w 0d 216 lb 8 oz (+16 lb 8 oz) 121/75 Negative -?-?-?-?-?-?-?-?-?-?--?-?- Negative 138 33 -?-?-?-?-?-?-?-?-?-?-?-?- MH-No VB, LOF. G ood Fm. Denies concerns 09/22/23 -?-?-?-?-?-?-?-?-?-?-?-?- 34w 0d 218 lb 4 oz (+18 lb 4 oz) 105/71 Negative -?-?-?-?-?-?-?-?-?-?-?-?- Negative 142 34 -?-?-?-?-?-?-?-?-?-?-?-?- JV- no lof, vagi nal bleeding, or dec fm. sleeping better now. 10/06/23 -?-?-?-?-?-?-?-?-?-?-?-?- 36w 0d 230 lb (+30 lb) 126/85 -?-?-?-?-?-?-?-?-?-?-?-?- 160 37 -?-?-?-?-?-?-?-?-?-?-?-?- SM- no vb lof go od fm no regular ctx 10/13/23 -?-?-?-?-?-?-?-?-?-?-?-?- 37w 0d 228 lb (+28 lb) 122/79 Negative -?-?-?-?-?-?-?-?-?-?-?-?- Negative 150 38 Cephalic 1 .5 -?-?-?-?-?-?-?-?-?-?-?-?- 50 -3 kw-no vb/l of/ctx. good fm. 10/20/23 -?-?-?-?-?-?-?-?-?-?-?-?- 38w 0d 227 lb (+27 lb) 131/75 Trace -?-?-?-?-?-?-?-?-?-?-?-?- Negative 130 37 Cephalic 3 -?-?-?-?-?-?-?-?-?-?-?-?- 60 -3 KW- no vb/ lof/ctx. good fm. 10/27/23 -?-?-?-?-?-?-?-?-?-?-?-?- 39w 0d 233 lb 8 oz (+33 lb 8 oz) 133/86 Negative -?-?-?-?-?-?-?-?-?-?-?-?- Negative 145 36 Cephalic 2 .5 -?-?-?-?-?-?-?-?-?-?-?-?- 70 -2 JV- no lof , vaginal bleeding, or dec fm. membranes swept today. MARLY today: JV- no lof, vaginal bleeding , or dec fm. membranes swept today. MARLY today: 10 11/03/23 -?-?-?-?-?-?-?-?-?-?-?-?- 40w 0d 234 lb 8 oz (+34 lb 8 oz) 117/84 Negative -?-?-?-?-?-?-?-?-?-?-?-?- Negative 155 37 Cephalic 3 -?-?-?-?-?-?-?-?-?-?-?-?- 70 -2 KW- work i n for JV. no vb/lof/ctx. good fm. IOL set up for next week NST FHR Rate Baby A Baseline: 125 Variability:: Moderate Accelerations:: 15 x 15 Decelerations:: Variable FHR Category:: Category I Uterine Activity:: 3-4 minutes ROS Constitutional Constitutional: Denies change in weight, fatigue, fever(s), headache(s), poor appetite or weakness Eyes Eyes: Denies blurry vision, change in vision, floaters, seeing flashes or spots in vision ENT HEENT: Denies dizziness, headache(s), loss taste/smell or sore throat Cardiovascular Cardiovascular: Denies chest pain, dizziness, dyspnea, irregular heart rhythm, lightheadedness, palpitations or rapid heart rate Respiratory/Chest Respiratory/Chest: Denies change in mental status, chest tightness, cough, dyspnea or breast pain Gastrointestinal Gastrointestinal: Denies anorexia, chewing difficulty, constipation, diarrhea or weight changes Genitourinary Genitourinary: Denies difficulty urinating, dysuria, flank pain, genital pain, urinary frequency or urinary urgency Musculoskeletal Musculoskeletal: Denies back pain, difficulty walking, extremity pain, joint pain, muscle cramps or muscle weakness Integumentary Integumentary: Denies lesions or unusual bruising Neurologic Neurologic: Denies abnormal movements, abnormal speech, dizziness, numbness, seizure-like activity, syncope or weakness Psychiatric Psychiatric: Denies behavioral changes, change in appetite, confusion, depression, homicidal ideation, suicidal ideation or suicidal thoughts Endocrine Endocrinology: Denies excessive sweating, polydipsia or polyuria Hematologic/Lymphatic Hematologic/Lymphatic: Denies anemia Allergic/Immunologic Allergic/Immunologic: Denies itchy eyes, lip swelling, throat swelling, tongue swelling or wheezing Vital Signs Vital Signs Vital Signs: 11/07/23 15:14 11/07/23 15:14 Pulse Rate 85 Blood Pressure 133/83 H BP Systolic 133 BP Diastolic 83 Weight Weight: 232 lb Body Mass Index (BMI) 36.3 Physical Exam Const alert, oriented x3 and no apparent distress General Appearance: cooperative Orientation / Consciousness: awake HEENT normocephalic Neck full ROM Lymph Lymphatic: no lymphadenopathy noted Chest inspection of chest normal Resp normal respiratory effort and normal air movement Effort and Inspection: able to speak in complete sentences and symmetric chest movement GI soft to palpation and non-tender Inspection: gravid Palpation: soft; Negative for tender external exam normal Back/Spine normal to inspection Extremity normal to inspection and full ROM Skin no rashes or lesions noted Psych mental status grossly normal Appearance: grossly normal Speech: normal speech Labs Labs Labs: Blood Type A POSITIVE Antibody Screen NEGATIVE Hct 35.7 % (37-47) L Hgb 11.9 g/dL (12.0-15.0) L Obstetrics Ultrasound Syphilis Total Ab Non-reactive Rubella IgG Antibody Reactive (Nonreactive) Hep Bs Antigen Non-Reactive (Nonreactive) Hepatitis C Antibody Non-Reactive (Nonreactive) Chlamydia DNA (CELIA) Negative (Negative) N.gonorrhoeae DNA (CELIA) Negative (Negative) HIV 1&2 Antibody Non-Reactive (Nonreactive) Glucose 1 Hr 50 gm 97 mg/dL (70-140) Assessment & Plan (1) Active labor: PLAN: Patient presents IAL, plan expectant management for , pitocin/AROM PRN if needed. Pain management: plans epidural. GBS negative. Management of any complications: none I have reviewed the [facility] and made any clinically relevant updates. Dr Zurita aware of assessment, plan and admission and agrees with above (2) Anemia in preg-unspec: QUALIFIERS: Trimester: second trimester Qualified Code(s): O99.012 - Anemia complicating , second trimester COMMENT: Taking FE. improved hbg. (3) Urinary tract infection: QUALIFIERS: Urinary tract infection type: acute cystitis Hematuria presence: with hematuria Qualified Code(s): N30.01 - Acute cystitis with hematuria COMMENT: 06/25/23 culture +. Rpt neg (4) Chlamydia infection affecting : QUALIFIERS: Trimester: first trimester Qualified Code(s): O98.811 - Other maternal infectious and parasitic diseases complicating , first trimester; A74.9 - Chlamydial infection, unspecified COMMENT: KYRA at 17 wks-missed at appt. collected in 06/24-negative (5) Obesity affecting : QUALIFIERS: Trimester: second trimester Obesity type affecting : unspecified obesity Qualified Code(s): O99.212 - Obesity complicating , second trimester COMMENT: A1C NOB-nl (6) Asthma: COMMENT: mild (7) Supervision of high-risk : QUALIFIERS: Trimester: third trimester Qualified Code(s): O09.93 - Supervision of high risk , unspecified, third trimester COMMENT: PRR, , LASHA 11/03/23, boy shahzad George, BF Patel (8) : QUALIFIERS: Weeks of gestation: 40 weeks Qualified Code(s): Z3A.40 - 40 weeks gestation of COMMENT: NL anatomy, NIPT low risk, discussed genetic & carrier testing (9) History of miscarriage, currently : Charges/Coding Multi Select Codes Urinary/Genital Urinary/Genital CPT Codes: No Charge
[2023-11-07 15:53] LABS: ROM Internal Control Test YES-OK TO RESULT pt. (Internal QC)
[2023-11-07 15:54] LABS: ROM Patient Test POSITIVE (Negative)
[2023-11-07 15:55] LABS: Record Kit Lot#, ROM+ K1660
[2023-11-07] MEDS: Lactated Ringers 1,000 ML 200 ML IV (15:59)
[2023-11-07] MEDS: fentaNYL-bupivacaine (epidural) 100 ML BAG EPIDURAL (16:03)
[2023-11-07 16:30] LABS: Syphilis Antibodies Non-reactive
[2023-11-07] MEDS: LACTATED RINGERS 500 ML 999 ML IV (16:50)
--- NOTE | 2023-11-07 17:20 | PCM.PN.BLA ---
Progress Note comfortable with epidural current tracing: FHT: 135 Moderate variability reactive variable decelerations category II tracing [place]: 2-4 Contractions Membranes: SROM remains clear SVE:/0 A/P: Continue with position changes Titrate pitocin per protocol Epidural per anesthesia GBS neg Anticipate Dr Carson aware of above assessment and agrees with plan of care Assessment & Plan Assessment/Plan (1) Active labor: (2) Anemia in preg-unspec: QUALIFIERS: Trimester: second trimester Qualified Code(s): O99.012 - Anemia complicating , second trimester (3) Urinary tract infection: QUALIFIERS: Urinary tract infection type: acute cystitis Hematuria presence: with hematuria Qualified Code(s): N30.01 - Acute cystitis with hematuria (4) Chlamydia infection affecting : QUALIFIERS: Trimester: first trimester Qualified Code(s): O98.811 - Other maternal infectious and parasitic diseases complicating , first trimester; A74.9 - Chlamydial infection, unspecified (5) Obesity affecting : QUALIFIERS: Trimester: second trimester Obesity type affecting : unspecified obesity Qualified Code(s): O99.212 - Obesity complicating , second trimester (6) Asthma: (7) Supervision of high-risk : QUALIFIERS: Trimester: third trimester Qualified Code(s): O09.93 - Supervision of high risk , unspecified, third trimester (8) : QUALIFIERS: Weeks of gestation: 40 weeks Qualified Code(s): Z3A.40 - 40 weeks gestation of (9) History of miscarriage, currently : Multi Select Codes Urinary/Genital Urinary/Genital CPT Codes: No Charge
[2023-11-07] MEDS: Amnioinfusion- 0.9% NS 1,000 ML IV.SOLN. 1000 ML INTRA-UTER (17:40)
--- NOTE | 2023-11-07 18:00 | PCM.PN.BLA ---
Progress Note comfortable with epidural current tracing: FHT: 125 Moderate variability reactive variable decelerations category II tracing [place]: 2-3 minute Contractions Membranes: remains clear SVE:unchanged reviewed tracing abnormalities since last note: phone collaboration with Dr Bhatti at this time for Cat II FHT tracing. notified amnioinfusion started and variables mostly resolved. moderate variability with accelerations A/P: Continue with position changes start/Titrate pitocin per protocol Epidural per anesthesia gbs neg Anticipate Dr Carson aware of above assessment and agrees with plan of care Assessment & Plan Assessment/Plan (1) Active labor: (2) Anemia in preg-unspec: QUALIFIERS: Trimester: second trimester Qualified Code(s): O99.012 - Anemia complicating , second trimester (3) Urinary tract infection: QUALIFIERS: Urinary tract infection type: acute cystitis Hematuria presence: with hematuria Qualified Code(s): N30.01 - Acute cystitis with hematuria (4) Chlamydia infection affecting : QUALIFIERS: Trimester: first trimester Qualified Code(s): O98.811 - Other maternal infectious and parasitic diseases complicating , first trimester; A74.9 - Chlamydial infection, unspecified (5) Obesity affecting : QUALIFIERS: Trimester: second trimester Obesity type affecting : unspecified obesity Qualified Code(s): O99.212 - Obesity complicating , second trimester (6) Asthma: (7) Supervision of high-risk : QUALIFIERS: Trimester: third trimester Qualified Code(s): O09.93 - Supervision of high risk , unspecified, third trimester (8) : QUALIFIERS: Weeks of gestation: 40 weeks Qualified Code(s): Z3A.40 - 40 weeks gestation of (9) History of miscarriage, currently : Multi Select Codes Urinary/Genital Urinary/Genital CPT Codes: No Charge
[2023-11-07] MEDS: Oxytocin 15 Units/NS 250ml 15 UNITS/250 ML IV.SOLN 2 UNITS IV (18:17)
[2023-11-07] MEDS: Oxytocin 15 Units/NS 250ml 15 UNITS/250 ML IV.SOLN 334 UNITS IV (19:26)
--- NOTE | 2023-11-07 19:41 | EX.PCM.OBRPT ---
Assessment & Plan (1) Vaginal delivery: COMMENT: KW 40.4 Emil PATRICIO (2) Active labor: (3) Anemia in preg-unspec: QUALIFIERS: Trimester: second trimester Qualified Code(s): O99.012 - Anemia complicating , second trimester COMMENT: Taking FE. improved hbg. (4) Urinary tract infection: QUALIFIERS: Urinary tract infection type: acute cystitis Hematuria presence: with hematuria Qualified Code(s): N30.01 - Acute cystitis with hematuria COMMENT: 06/25/23 culture +. Rpt neg (5) Chlamydia infection affecting : QUALIFIERS: Trimester: first trimester Qualified Code(s): O98.811 - Other maternal infectious and parasitic diseases complicating , first trimester; A74.9 - Chlamydial infection, unspecified COMMENT: KYRA at 17 wks-missed at appt. collected in WP 06/24-negative (6) Obesity affecting : QUALIFIERS: Trimester: second trimester Obesity type affecting : unspecified obesity Qualified Code(s): O99.212 - Obesity complicating , second trimester COMMENT: A1C NOB-nl (7) Asthma: COMMENT: mild (8) Supervision of high-risk : QUALIFIERS: Trimester: third trimester Qualified Code(s): O09.93 - Supervision of high risk , unspecified, third trimester COMMENT: PRR, , LASHA 11/03/23, emil George, JOHNATHON Sweeney (9) : QUALIFIERS: Weeks of gestation: 40 weeks Qualified Code(s): Z3A.40 - 40 weeks gestation of COMMENT: NL anatomy, NIPT low risk, discussed genetic & carrier testing (10) History of miscarriage, currently : Maternal Data Information LASHA Calculator Estimated Delivery Date Method Current WG Current Estimate 11/03/23 Ultrasound #1 40w 4d Final LASHA: 11/03/23 Final LASHA Source: US >20 weeks Gestational age: 40.0 Vaginal Delivery Maternal Presentation Maternal Presentation: Active Labor and Spontaneous Rupture of Membranes Maternal Presentation: Progressed well to 10cm dilated and made steady progress with effective maternal pushing, FHT noted to be in the 50s with and decision was made to perform a small episiotomy to assist with delivery of infant. Delivered the head in JOSE G presentation. The head was delivered atraumatically and a loose nuchal cord was identified and was easily reduced over the infant's head. The anterior and posterior shoulders delivered without complication followed by the rest of the infant and the was placed on the maternal abdomen. Delayed cord clamping was employed for approximately 3 minutes. Cord was clamped and cut and gentle traction was applied to the cord and the placenta delivered spontaneously. Immediately following, it was noted to be intact with a 3 vessel cord. IV Pitocin started and vaginal bleeding stable. The perineum and vagina were inspected and noted to have no laceration but episiotomy was repaired with 3-0 Vicryl in the usual fashion. EBL was 200cc. Apgars 8/9. Patient and infant tolerated delivery well. Bonding skin to skin during recovery. Dr Broderick notified of vaginal delivery and orders reviewed. Physician agrees with current plan of care. Operative Information Date of Procedure: 11/07/23 Pre-Operative Diagnosis: See AP comments Post-Operative Diagnosis: Same Surgery / Procedure Performed: Spontaneous Vaginal Delivery supervisor mixing #1: Mami Cantor Type of Anesthesia: Epidural Estimated Blood Loss: 200 Time of Delivery: 19:21 Findings Presentation: Vertex Amniotic Membrane Rupture Type: Spontaneous Amniotic Fluid Description: Clear Placental Delivery Description: Spontaneous Placenta Disposition: [facility] Cord Vessel Description: 3 Vessels Cord Entanglement: Around neck x 1, loose Nuchal Cord Compression: With compression Cord Gases: ABG and VBG A Gender: Male (1 minute): 8 (5 minute): 9 Post Vaginal Delivery Medications Given After Delivery: IV Pitocin Episiotomy Description: Right Mediolateral Laceration: None Complication Complications: None Multi Select Codes Urinary/Genital Urinary/Genital CPT Codes: 76859 Vaginal Delivery [facility]
--- NOTE | 2023-11-07 19:49 | DCINST_ITS ---
Discharge Instructions Diet Discharge Diet: No restrictions Activity Discharge Activity: Return to Normal Activity May resume sexual activity in: 6-8 weeks Dressing / Incision Call your doctor if you observe: Fever of 101 or Higher, Coldness, Increased Pain, Numbness or Tingling, Change in Color, Inability to urinate, Inability to have a bowel movement, Using more than 1 pad per hour, Shortness of breath, Dizziness, Fainting spells, Swelling in the ankles, Chest pain, Increased palpitations (irregular heartbeat), Calf discomfort and Uncontrolled pain Follow Up Care Please Follow Up With: Mami Cantor CNM When: Please call the office to schedule your follow up appointment in 6 weeks. If you had high blood pressure please call to schedule an appointment in 2 weeks. Test Results: Test results from this visit will be discussed in further detail at your follow- up appointment, if applicable. Discharge Plan Admission Admit Date/Time: 11/07/23 14:48 Attending Provider: Mami Cantor Primary Care Provider: Care Physician,No Primary Discharge Orders/Prescriptions Prescriptions: No Action PNV no.[id number] 400 mcg-35 mg- 25 mg-5 mg tablet,chewable 1 tab PO DAILY Referrals / Follow Up: Care Physician,No Primary [Primary Care Provider] -
[2023-11-07] MEDS: Oxytocin 15 Units/NS 250ml 15 UNITS/250 ML IV.SOLN 83 UNITS IV (20:35)
[2023-11-07] MEDS: Ibuprofen 600 MG Tablet PO (22:26)
[2023-11-07] MEDS: Benzocaine/Lanolin/Aloe Vera 85 GM Spray 1 SPRAY TOPICAL (22:26)
[2023-11-07] MEDS: 0.9% Saline Lock 10 ML Syringe IV (23:33)
[2023-11-08] VITALS (11 sets, daily range): BP systolic 110–137; BP diastolic 62–84; PULSE 88–109; RESP 15–18; TEMP 36.6–37.4; O2SAT 97–99
[2023-11-08] MEDS: Ibuprofen 600 MG Tablet PO ×2 (07:01→15:52)
--- NOTE | 2023-11-08 09:00 | PN.OBGYN_ITS ---
Subjective Subjective Patient doing well without complaints. Tolerating PO. Ambulating and voiding without difficulty. feeding well. Denies chest pain, shortness of breath, calf pain/swelling, fevers, chills, lightheadedness. Objective Data Objective Data Vital Signs: Vital Signs Temp Pulse Resp BP Pulse Ox O2 Del Method 99.1 F 91 16 124/74 H 98 Room Air 11/08/23 08:00 11/08/23 08:00 11/08/23 08:00 11/08/23 08:00 11/08/23 08:00 11/08/23 08:00 Oxygen Delivery Method Room Air Weight: 232 lb Body Mass Index (BMI) 36.3 Intake & Output: Intake and Output for Last 24 Hours 11/06/23 11/07/23 11/08/23 23:59 23:59 23:59 Intake Total 2684.91 / 2684.91 Output Total 700 / 700 300 / 300 Balance 1983.91 / 1983. -300 / -300 Lab / Micro Data 11/07/23 15:00 Labs: Laboratory Results - last 24 hr 11/07/23 14:50: Vag Amniotic Fld Detect POSITIVE H 11/07/23 15:00: WBC 12.8 H, RBC 4.02 L, Hgb 11.9 L, Hct 35.7 L, MCV 88.8, MCH 29.6, MCHC 33.3, RDW Std Deviation 44.5 H, RDW Coeff of Bartolo 13.7, Plt Count 246, MPV 11.0, Immature Gran % (Auto) 0.800, Neut % (Auto) 73.3 H, Lymph % (Auto) 18.7 L, [place] % (Auto) 6.5, Eos % (Auto) 0.5, Baso % (Auto) 0.2, Absolute Neuts (auto) 9.4 H, Absolute Lymphs (auto) 2.39, Nucleated RBC % 0, Syphilis Total Ab Non-reactive, Blood Type A POSITIVE, Antibody Screen NEGATIVE ROS Constitutional Constitutional: Reports systems reviewed and no addt'l complaints, except as documented Cardiovascular Cardiovascular: Reports systems reviewed and no addt'l complaints, except as documented Respiratory/Chest Respiratory/Chest: Reports systems reviewed and no addt'l complaints, except as documented Gastrointestinal Gastrointestinal: Reports systems reviewed and no addt'l complaints, except as documented Physical Exam Const alert, oriented x3 and no apparent distress HEENT Head and Scalp: atraumatic Resp normal respiratory effort GI soft to palpation and non-tender Bimanual Exam - Vag & Uterus: uterus non-tender Uterus Palpation: uterus fundus firm (below Umbilicus) Assessment & Plan (1) Vaginal delivery: COMMENT: KW 40.4 Boy Geo IAL PLAN: Plan s/p PPD # 1 1. routine post delivery care 2. breast feeding- support given 3. rh positive 4. rubella immune
== END 2023-11-08 20:59 | disposition home or self-care (01) | DRG 807 ==
PROVIDERS: Admitting Provider Advanced Practice Midwife; Referring Provider Advanced Practice Midwife; Visit Provider Advanced Practice Midwife
DX: O48.0 Post-term pregnancy (principal); Z37.0 Single live birth; D64.9 Anemia, unspecified; J45.909 Unspecified asthma, uncomplicated; O99.214 Obesity complicating childbirth; O99.52 Diseases of the respiratory system complicating childbirth; O69.81X0 Labor and delivery complicated by cord around neck, without compression, not applicable or unspecified; O99.02 Anemia complicating childbirth; Z3A.40 40 weeks gestation of pregnancy; Z87.891 Personal history of nicotine dependence
CPT/HCPCS: 59025; 59050; 84112; 85025; 86780; 86850; 86900; 86901; 99221; J7030; J7120; A4216; G0378

== ENCOUNTER → 2024-12-10 | Outpatient (CLI) | payer OTHER, MEDICAID, SELFPAY ==
[2024-12-10 13:10] LABS: HIV Nonreactive (Nonreactive); Hepatitis B Surface Antigen Nonreactive (Nonreactive); Syphilis Antibodies Nonreactive (Nonreactive)
[2024-12-12 07:07] LABS: HCV Quant. RNA PCR HCV Not Detected IU/mL (.)
[2024-12-13 07:08] LABS: Chlamydia By Nucleic Acid AMP Negative (Negative); Gonococcus By Nucleic Acid AMP Negative (Negative)
== END | disposition home or self-care (01) ==
PROVIDERS: Visit Provider Advanced Practice Midwife
DX: Z11.3 Encounter for screening for infections with a predominantly sexual mode of transmission (principal); N89.8 Other specified noninflammatory disorders of vagina; R30.0 Dysuria
CPT/HCPCS: 36415; 86695; 86696; 86703; 86780; 87070; 87086; 87088; 87205; 87340; 87491; 87522; 87591